=== PATIENT | male | born 1980 | race African-American/Black ===

== ENCOUNTER 2024-01-15 12:35 | Emergency (ER) | payer SELFPAY ==
[~2024-01-15] VITALS: Ht 167.6 cm; Wt 70.0 kg
[2024-01-15 12:37] VITALS: BP 132/88; PULSE 100; RESP 18; TEMP 98.1; O2SAT 98
== END 2024-01-15 13:03 | disposition left against medical advice (07) ==
LOC: ER 12:40
DX: F10.129 Alcohol abuse with intoxication, unspecified (principal); Y90.9 Presence of alcohol in blood, level not specified
CPT/HCPCS: 99283